=== PATIENT | male | born 1970 | race Two or more races ===

== ENCOUNTER 2017-03-30 08:42 | Emergency (ER) | payer BC ==
[2017-03-30 08:51] VITALS: BP 160/100; PULSE 78; TEMP 98.2; BMI 36.9
[2017-03-30] MEDS ORDERED: ALPRAZolam 2 MG TABLET ONE (09:46)
--- NOTE | 2017-03-30 09:50 | PDOC ---
Suture Removal/Wound Check HPI - History of Present Illness Chief Complaint: Asthma Stated Complaint: POSSIBLE RX OD Time Seen by Provider: 03/30/17 09:14 History Source: Yes: Patient Exam Limitations: Yes: No Limitations Treated at: [facility] ED - Previous ED Treatment Type of procedure performed on last visit: Yes: I&D of Abscess Past History - Travel Traveled outside of the country in the last 30 days: No Close contact w/someone who was outside of country & ill: No - Past Medical History Allergies/Adverse Reactions: Allergies Allergy/AdvReac Type Severity Reaction Status Date / Time No Known Allergies Allergy Verified 03/30/17 08:43 Home Medications: Ambulatory Orders Diazepam [Valium -] 5 mg PO Q8H PRN #2 tablet 01/05/14 Hctz 25Mg/Triamterene [Dyazide 25/37.5 -] 1 cap PO DAILY #10 capsule 01/05/14 Naproxen [Naprosyn -] 500 mg PO BID PRN #14 tablet 01/05/14 No Home Medications 0 dose .ROUTE UTDICT 01/05/14 Oxycodone HCl/Acetaminophen [Percocet 5-325 mg Tablet] 1 tab PO Q6H PRN #12 tablet 01/05/14 Asthma: Yes HTN: Yes Other medical history: hx of heroin abuse 20 yrs ago, and oxyconde abuse , now on suboxone - Suicide/Smoking/Psychosocial Hx Smoking History: Former smoker Have you smoked in the past 12 months: No Number of Cigarettes Smoked Daily: 1 Information on smoking cessation initiated: No Hx Alcohol Use: No Drug/Substance Use Hx: No Substance Use Type: None Suture Removal/Wound Check PE - Physical Exam Laceration/Wound Check Symptoms: reports: None *Review of Systems - Review of Systems Able to Perform ROS?: Yes Constitutional: Yes: See HPI. No: Symptoms Reported, Malaise Musculoskeletal: Yes: Symptoms Reported, See HPI. 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 onset was yesterday with the anniversary of his father's , has situational issues with mother in [place], and some family stress. became short of breath yesterday, used his albuterol inhaler feeling like it may have been an asthma attack which made him even more jittery. is also trying to come off of Suboxone that he is been taking for chronic back issues and hasn't had any doses for the past 2 days.
[2017-03-30] MEDS ORDERED: ALPRAZolam 2 MG TABLET PO ONE (09:53)
--- NOTE | 2017-03-30 09:56 | PDOC ---
History of Present Illness - General Chief Complaint: Asthma Stated Complaint: POSSIBLE RX OD Time Seen by Provider: 03/30/17 09:14 History Source: Patient Exam Limitations: No Limitations - History of Present Illness Initial Comments: 03/30/17 09:51 came to the emergency department, hyperventilating, tearful, stating he is having a panic attack. onset was yesterday afternoon while driving. Pulled over and became more depressed with concerns with the anniversary of his father's , has situational issues with mother in [place], and some family stress. became short of breath yesterday, used his albuterol inhaler feeling like it may have been an asthma attack which made him even more jittery. is also trying to come off of Suboxone that he is been taking for chronic back issues and hasn't had any doses for the past 2 days. Patient denies homicidal suicidal ideation, denies feelings of self injury but has feelings of self worth and depression. Denies fever, cough or URI symptoms. Denies nausea vomiting diarrhea constipation. is primarily feeling depressed, and feeling very stressed. Has never had any psychiatric issues, but states his father had suffered from severe anxiety and panic attacks. 03/30/17 09:54 03/30/17 10:15 Timing/Duration: unsure, 24 hours Severity: moderate, severe Associated Symptoms: reports: headaches, malaise. denies: cough, fever/chills Past History - Travel Traveled outside of the country in the last 30 days: No Close contact w/someone who was outside of country & ill: No - Past Medical History Allergies/Adverse Reactions: Allergies Allergy/AdvReac Type Severity Reaction Status Date / Time No Known Allergies Allergy Verified 03/30/17 08:43 Home Medications: Ambulatory Orders Hctz 25Mg/Triamterene [Dyazide 25/37.5 -] 1 cap PO DAILY #10 capsule 01/05/14 Naproxen [Naprosyn -] 500 mg PO BID PRN #14 tablet 01/05/14 Albuterol Sulfate [Proair Respiclick] 90 mcg IH ASDIR 03/30/17 Amlodipine Besylate 10 mg PO DAILY 03/30/17 Buprenorphine HCl/Naloxone HCl [Suboxone 8 mg-2 mg Sl Tablets] 1 each SL ASDIR 03/30/17 Fenofibrate [Fenoglide] 120 mg PO DAILY 03/30/17 Lisinopril 10 mg PO DAILY 03/30/17 Asthma: Yes HTN: Yes Other medical history: hx of heroin abuse 20 yrs ago, and oxyconde abuse , now on suboxone - Suicide/Smoking/Psychosocial Hx Smoking History: Former smoker Have you smoked in the past 12 months: No Number of Cigarettes Smoked Daily: 1 Information on smoking cessation initiated: No Hx Alcohol Use: No Drug/Substance Use Hx: No Substance Use Type: None Review of Systems - Review of Systems Able to Perform ROS?: Yes Is the patient limited [place] proficient: Yes Constitutional: Yes: Symptoms Reported, See HPI, Loss of Appetite, Malaise HEENTM: Yes: See HPI. No: Symptoms Reported Respiratory: Yes: See HPI. No: Symptoms reported, Cough Musculoskeletal: Yes: Symptoms Reported Neurological: Yes: See HPI, Dizziness (with hyperventilation symptoms ). No: Symptoms reported Psychiatric: Yes: Anxiety All Other Systems: Reviewed and Negative *Physical Exam - Vital Signs Last Vital Signs Temp Pulse Resp BP Pulse Ox 98.2 F 78 18 160/100 100 03/30/17 08:45 03/30/17 08:45 03/30/17 08:45 03/30/17 08:45 03/30/17 08:45 - Physical Exam General Appearance: Yes: Nourished, Appropriately Dressed, Apparent Distress, Moderate Distress HEENT: positive: SHERLYN, Normal ENT Inspection, TMs Normal, Pharynx Normal Neck: positive: Tender, Supple Respiratory/Chest: positive: Lungs Clear, Normal Breath Sounds. negative: Stridor, Wheezing Cardiovascular: positive: Regular Rate Gastrointestinal/Abdominal: positive: Normal Bowel Sounds, Soft. 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 Lengthy discussion given to patient for the need for counseling's, mental health evaluation for ongoing therapy for his anxiety. Lengthy discussion about need for with drawing medications under the direction of physicians who prescribed to avoid any withdrawal symptoms and to proceed safely. Encouraged to rest, drink lots of fluids, and follow-up with PMD this week for reevaluation and possible referral for mental health. Provided phone number to Dr. Franklin who was on-call for psychiatry *DC/Admit/Observation/Transfer Diagnosis at time of Disposition: Panic attack, Opiate withdrawal - Discharge Dispostion Disposition: HOME Condition at time of disposition: Stable - Referrals Referrals: Pauline Marshall MD [Primary Care Provider] - Humberto Gan MD [Staff Physician] - - Patient Instructions Printed Discharge Instructions: DI for Panic Disorder Additional Instructions: Rest, avoid stressful activity or exercise until symptoms resolve Take all medications as prescribed and discuss discontinuation of Suboxone with Dr. Uribe/pain management physician this week. Avoid albuterol unless having a respiratory issue as will create more anxiety as it is a stimulant Discussed with private physician mental health counseling for stress management and anxiety. Xanax, take one third of tablet and may repeat every 8 hours for severe anxiety Scuffing with pain management physician you have this medication - Post Discharge Activity Forms/Work/School Notes: Back to Work
== END 2017-03-30 10:04 | disposition home or self-care (01) ==
LOC: JERFT 08:42
DX: F41.0 Panic disorder [episodic paroxysmal anxiety] (principal); F11.23 Opioid dependence with withdrawal; Z87.891 Personal history of nicotine dependence; J45.909 Unspecified asthma, uncomplicated; I10 Essential (primary) hypertension
CPT/HCPCS: 99281-25